=== PATIENT | female | born 1995 | race Caucasian/White ===

== ENCOUNTER 2017-07-28 09:23 | Emergency (ER) | payer SELFPAY ==
[2017-07-28 09:24] VITALS: BP 125/87; PULSE 85; RESP 14; TEMP 36.8; O2SAT 97; BMI 35.9
--- NOTE | 2017-07-28 09:40 | VDLE_ITS ---
Reason For Study: LLE pain RIGHT LEFT CFV is compressible, spontaneous, phasic, GSV is normal. competent and demonstrates normal CFV is compressible, spontaneous, phasic, augmentation. competent, and demonstrates normal Procedure augmentation. Exam performed portable in ED. FV is compressible, spontaneous, phasic, The exam was diagnostic. competent and demonstrates normal Dr. Bailon @ 10:40 am. augmentation. POP V is compressible, spontaneous, phasic, competent and demonstrates normal augmentation. T/P Trunk is compressible. PTV is compressible. LT PerV is compressible. Interpretation Summary There is no evidence of left lower extremity deep vein thrombosis. Left greater saphenous vein appears patent and compressible segmentally. Normal flow patterns right common femoral vein. Ordering Physician: Jina Bailon Referring Physician: David Elaine Performed By: Irene Aguillon, KINZA, RVT
--- NOTE | 2017-07-28 09:45 | ED.VISSUMM ---
- ER Visit Summary Date of Service: 07/28/17 Chief Complaint: Back pain History of Present Illness: The patient is a 21 F with a one-month history of back pain. Patient states was initially more midline and is now just to the right of midline. She has been seeing a chiropractor. She has no known injury. Patient does have chronic left knee pain and her chiropractor believes this is because problems with her gait and therefore led to her back pain. Patient was recently in [place] and had a long car ride. There is reportedly a family history of factor V Leiden and family members concerned about possible blood clot behind the knee. Patient states that her back pain flared last night became worse. She is occasional pain rating down the right leg. No problems with bowel or bladder. No injury. Physical Examination: Vital signs are unremarkable. Patient was observed ambulating to her room with antalgic gait. Head and neck examination is unremarkable. Heart is regular rate and rhythm. Lung sounds are clear. Abdomen is soft nontender. Back examination reveals tenderness in the right lumbar paraspinal muscles. There is very mild midline tenderness in the lumbar region. She has sunburn to the area but no area of ecchymosis or abrasion. Lower extremity examination reveals tenderness posterior to the left knee and along the medial joint line. Ligaments are tight on testing. Neuro exam patient has good strength and sensation to the lower extremities on testing. Test Results: Left knee x-rays reveal no acute fracture. Venous ultrasound of the left leg shows no clot. Urinalysis is normal. test negative. Emergency Department Course and Treatment: Patient was treated with [place] and Flexeril. I do not feel the x-rays of her back are warranted as there is no injury. She may require MRI and explained to her multiple times that I have no criteria to get an emergent MRI from the emergency room at this time. She is encouraged to follow-up with her primary care physician who may order MRI if warranted. She was treated with a course of [place] and Flexeril. Treatment Plan: [] Disposition: Discharge Impression: 1. Right lumbar paraspinal strain 2. Left knee sprain This note was generated with [employer] software. It may contain incorrect words, spelling, and punctuation that were not noted in review of the chart prior to signing ED Disposition - Plan for ED Patient: Disposition: Home or Assisted Living Chief Complaint: Back Instructions: ED Sprain Strain Lumbar, ED Sprain Knee Prescriptions: Hydrocodone Bitart/Apap 5-325 [[place] 5/325] 1 - 2 tablet PO Q6H PRN PRN 4 Days #20 tablet PRN Reason: Pain Cyclobenzaprine [Flexeril] 10 mg PO TID PRN #20 tab PRN Reason: Muscle Spasm Referrals: [facility] Doctor,Out of [Primary Care Provider] - As soon as possible
[2017-07-28] MEDS: HYDROcodone Bitartrate/Apap 5/325 Tablet PO (09:50)
[2017-07-28 10:28] LABS: Mucous, Urine 0 SEEN /hpf (<or=2+); Red Blood Cells-Urine 0 SEEN /hpf (0-5)
[2017-07-28 10:43] LABS: Color, Urine Yellow (Yellow); Glucose, Dipstick Normal (Normal); Ketone-Dipstick Negative (Negative); Leukocyte Esterase-Dipstick 100 /ul (Negative); Nitrite-Dipstick Negative (Negative); Occult Blood-Urine 50 /ul (Negative); Protein-Dipstick Negative (Negative); Urine Bilirubin Dipstick Negative (Negative); Urine Clarity Sl. Cloudy (Clear); Urine Urobilinogen Normal (Normal)
[2017-07-28 10:46] LABS: Internal QC Validated? YES +Cl - CLEAR BKGD; Pregnancy, Urine Negative Negative
[2017-07-28 10:49] LABS: Bacteria 1+ /hpf (None Seen); Squamous Epithelial Cells - UA 0-5 SEEN /hpf (5-10); White Blood Cells 0-5 SEEN /hpf (0-5)
--- NOTE | 2017-07-28 11:10 | RAD_ITS ---
STUDY: X-RAY - LEFT KNEE REASON FOR EXAM: Female, 21 years old. Pain TECHNIQUE: 4 view(s) of the knee. COMPARISON: None. FINDINGS: No evidence for acute fractures or dislocation. Patellofemoral compartment is within normal limits. Femoral condyles are within normal limits. Fibular head neck junction appears intact. RAD/Knee 4 or More Views IMPRESSION: No evidence for acute fractures. Electronically Signed: Malik Norman, at 11:23 EDT Tel , Service support ,
--- NOTE | 2017-07-28 12:12 | ED.DEP ---
ED Disposition - Plan for ED Patient: Disposition: Home or Assisted Living Chief Complaint: Back Instructions: ED Sprain Strain Lumbar, ED Sprain Knee Prescriptions: Hydrocodone Bitart/Apap 5-325 [[place] 5/325] 1 - 2 tablet PO Q6H PRN PRN 4 Days #20 tablet PRN Reason: Pain Cyclobenzaprine [Flexeril] 10 mg PO TID PRN #20 tab PRN Reason: Muscle Spasm Referrals: [facility] Doctor,Out of [Primary Care Provider] - As soon as possible
== END 2017-07-28 12:29 | disposition home or self-care (01) ==
PROVIDERS: Emergency Provider Emergency Medicine; Family Provider Family Medicine
DX: S39.012A Strain of muscle, fascia and tendon of lower back, initial encounter (principal); S83.92XA Sprain of unspecified site of left knee, initial encounter; X58.XXXA Exposure to other specified factors, initial encounter; Y93.9 Activity, unspecified; Y92.9 Unspecified place or not applicable; M25.562 Pain in left knee; G89.29 Other chronic pain
CPT/HCPCS: 73564; 81001; 81025; 93971; 99283